=== PATIENT | female | born 1950 | race African-American/Black ===

== ENCOUNTER 2017-08-02 08:11 | Emergency (ER) | payer OTHER ==
[2017-08-02 08:32] VITALS: BP 166/90; PULSE 90; TEMP 98.6; BMI 25.1
[2017-08-02] MEDS ORDERED: ALBUTEROL SO4 2.5/IPRATROPIUM 0.5 INH SOL 3 ML VIAL.NEB. NEB ONE (08:43)
--- NOTE | 2017-08-02 08:47 | PDOC ---
History of Present Illness - General Chief Complaint: Cold Symptoms Stated Complaint: FLU LIKE SYMPTOMS Time Seen by Provider: 08/02/17 08:29 History Source: Patient Exam Limitations: No Limitations - History of Present Illness Initial Comments: 08/02/17 08:45 Patient is a 66-year-old female, history of hypertension high cholesterol presents with bronchospasm, cough, generalized body aches, tactile fever, sore throat. "I think I have the flu" Allergies: No known allergies Medications: [Metoprolol, Crestor patient is not sure if these are the correct names] Family History: Non-contributory Social History: Denies smoking, alcohol use, or IVDU Review of Systems GENERAL/CONSTITUTIONAL: [Fever and chills. No weakness. No weight change.] HEAD, EYES, EARS, NOSE AND THROAT: [No change in vision. No ear pain or discharge. Sore throat] CARDIOVASCULAR: [No chest pain or shortness of breath.] RESPIRATORY: [Nonproductive cough, no wheezing, or hemoptysis.] GASTROINTESTINAL: [No nausea, vomiting, diarrhea or constipation. No rectal bleeding.] GENITOURINARY: [No dysuria, frequency, or change in urination.] MUSCULOSKELETAL: [No joint or muscle swelling or pain. No neck or back pain.] SKIN AND BREASTS: [No rash or easy bruising.] NEUROLOGIC: [No headache, vertigo, loss of consciousness, or loss of sensation.] PSYCHIATRIC: [No depression or anxiety.] ENDOCRINE: [No increased thirst. No abnormal weight change.] HEMATOLOGIC/LYMPHATIC: [No anemia, easy bleeding, or history of blood clots.] ALLERGIC/IMMUNOLOGIC: [No hives or skin allergy. No latex allergy.] Physical Exam: GENERAL: [The patient is awake, alert, and fully oriented, in no acute distress. ] EYES: [Pupils equal, round and reactive to light, extraocular movements intact, sclera anicteric, conjunctiva clear.] ENT: [Ears normal, nares patent, oropharynx clear without exudates. Moist mucous membranes. No uvula deviation] NECK: [Normal range of motion, supple without lymphadenopathy, JVD, or masses.] LUNGS: [Breath sounds are decreased at the bases, rhonchi, no wheezing] HEART: [Regular rate and rhythm, normal S1 and S2 without murmur, rub or gallop. ] ABDOMEN: [Soft, nontender, normoactive bowel sounds. No guarding, no rebound. No masses. No bruising or abrasions] MUSCULOSKELETAL: [Normal range of motion, no edema. No clubbing or cyanosis. No cords, erythema, or tenderness. No CVA Tenderness with fist.] NEUROLOGICAL: [Cranial nerves II through XII grossly intact. Normal speech, normal gait.] SKIN: [Warm, Dry, normal turgor, no rashes or lesions noted.] Past History - Past Medical History Allergies/Adverse Reactions: Allergies Allergy/AdvReac Type Severity Reaction Status Date / Time No Known Drug Allergies Allergy Verified 08/02/17 08:20 Home Medications: Ambulatory Orders Aspirin [ASA -] 81 mg PO DAILY 05/03/13 Lisinopril [Prinivil -] 20 mg PO DAILY 05/03/13 Meclizine HCl [Antivert -] 25 mg PO TID PRN #14 tablet 06/18/15 Metoprolol Succinate [Toprol XL -] 50 mg PO DAILY 06/18/15 Albuterol Sulfate Inhaler - [Ventolin HFA Inhaler -] 1 - 2 inh PO Q4H #1 inhaler 08/02/17 Azithromycin [Zithromax 250mg Tablets -] 250 mg PO UTDICT #6 tab 08/02/17 Anemia: No Asthma: No Cancer: No Cardiac Disorders: No CVA: No COPD: No CHF: No Dementia: No Diabetes: No GI Disorders: No Disorders: No HTN: Yes Hypercholesterolemia: No Liver Disease: No Seizures: No Thyroid Disease: No - Surgical History Abdominal Surgery: Yes (TUMMY TUCK) Appendectomy: No Cardiac Surgery: No Cholecystectomy: No Lung Surgery: No Neurologic Surgery: No Orthopedic Surgery: No - Suicide/Smoking/Psychosocial Hx Smoking History: Never smoked Have you smoked in the past 12 months: Yes Hx Alcohol Use: No Drug/Substance Use Hx: No Substance Use Type: None Hx Substance Use Treatment: No *Physical Exam - Vital Signs Last Vital Signs Temp Pulse Resp BP Pulse Ox 98.6 F 90 18 166/90 98 08/02/17 08:18 08/02/17 08:18 08/02/17 08:18 08/02/17 08:18 08/02/17 08:18 Medical Decision Making - Medical Decision Making 08/02/17 08:47 A/P: Patient here for evaluation of flulike symptoms, lungs with rhonchi, Combivent given. I will test for the flu and treat for bronchitis, azithromycin. 08/02/17 09:39 Influenza is Negative will DC patient on azithromycin, albuterol, single dose of prednisone given in emergency room. Patient to follow-up with PMD. If Any respiratory difficulty, fever, other concerns return to ER. I discussed the physical exam findings, ancillary test results and final diagnoses with the patient. I answered all of the patient's questions. The patient was satisfied with the care received and felt comfortable with the discharge plan and treatment plan. The patient will call to arrange follow-up and will return to the Emergency Department with any new, persistent or worsening symptoms. *DC/Admit/Observation/Transfer Diagnosis at time of Disposition: URI (upper respiratory infection) Qualifiers: URI type: unspecified URI Qualified Code(s): J06.9 - Acute upper respiratory infection, unspecified - Discharge Dispostion Disposition: HOME Condition at time of disposition: Stable - Prescriptions Prescriptions: Albuterol Sulfate Inhaler - [Ventolin HFA Inhaler -] 1 - 2 inh PO Q4H #1 inhaler Azithromycin [Zithromax 250mg Tablets -] 250 mg PO UTDICT #6 tab - Referrals - Patient Instructions Printed Discharge Instructions: DI for Viral Upper Respiratory Infection -- Adult Additional Instructions: Increase fluids to prevent dehydration Tylenol for headache Motrin for fever greater than 101.0 Antibiotics as ordered until completed. Please followup with primary care in 3 days if symptoms persist Return to emergency department any increased cough, fever, inability to drink or other concerns - Post Discharge Activity
[2017-08-02] MEDS ORDERED: predniSONE 20 MG TABLET (UD) PO ONE (09:41)
[2017-08-02] MEDS ORDERED: predniSONE 20 MG TABLET (UD) ONE (09:45)
== END 2017-08-02 09:51 | disposition home or self-care (01) ==
LOC: JER 08:11
DX: J06.9 Acute upper respiratory infection, unspecified (principal); I10 Essential (primary) hypertension; E78.00 Pure hypercholesterolemia, unspecified
CPT/HCPCS: 87804; 99281-25

== ENCOUNTER 2018-05-17 07:59 | Emergency (ER) | payer OTHER ==
[2018-05-17 08:07] VITALS: BP 140/74; PULSE 62; TEMP 97.9; BMI 24.7
--- NOTE | 2018-05-17 08:40 | PDOC ---
History of Present Illness - General Chief Complaint: Injury Stated Complaint: FALL Time Seen by Provider: 05/17/18 08:27 History Source: Patient Exam Limitations: No Limitations - History of Present Illness Initial Comments: 05/17/18 08:49 pt states she slipped and fell on her left knee 4 days ago. pt has pain to left knee, pt is ambulating . Lower Ext. Injury Location - Specific Injury Location Knees: left pain Past History - Past Medical History Allergies/Adverse Reactions: Allergies Allergy/AdvReac Type Severity Reaction Status Date / Time No Known Drug Allergies Allergy Verified 05/17/18 08:07 Home Medications: Ambulatory Orders Aspirin [ASA -] 81 mg PO DAILY 05/03/13 Lisinopril [Prinivil -] 20 mg PO DAILY 05/03/13 Meclizine HCl [Antivert -] 25 mg PO TID PRN #14 tablet 06/18/15 Metoprolol Succinate [Toprol XL -] 50 mg PO DAILY 06/18/15 Albuterol Sulfate Inhaler - [Ventolin HFA Inhaler -] 1 - 2 inh PO Q4H #1 inhaler 08/02/17 Azithromycin [Zithromax 250mg Tablets -] 250 mg PO UTDICT #6 tab 08/02/17 Anemia: No Asthma: No Cancer: No Cardiac Disorders: No CVA: No COPD: No CHF: No Dementia: No Diabetes: No GI Disorders: No Disorders: No HTN: Yes Hypercholesterolemia: No Liver Disease: No Seizures: No Thyroid Disease: No - Surgical History Abdominal Surgery: Yes (TUMMY TUCK) Appendectomy: No Cardiac Surgery: No Cholecystectomy: No Lung Surgery: No Neurologic Surgery: No Orthopedic Surgery: No - Suicide/Smoking/Psychosocial Hx Smoking History: Never smoked Have you smoked in the past 12 months: Yes Number of Cigarettes Smoked Daily: 2 Information on smoking cessation initiated: Yes Hx Alcohol Use: No Drug/Substance Use Hx: No Substance Use Type: None Hx Substance Use Treatment: No Review of Systems - Review of Systems Able to Perform ROS?: Yes Is the patient limited Slovenian proficient: No Musculoskeletal: Yes: Symptoms Reported *Physical Exam - Vital Signs Last Vital Signs Temp Pulse Resp BP Pulse Ox 97.9 F 62 17 140/74 98 05/17/18 08:05 05/17/18 08:05 05/17/18 08:05 05/17/18 08:05 05/17/18 08:05 - Physical Exam General Appearance: Yes: Nourished, Appropriately Dressed HEENT: positive: EOMI, SONA Neck: positive: Supple Musculoskeletal: positive: Normal Inspection Extremity: positive: Normal Capillary Refill, Tender (medially left knee , no bony tenderness) Integumentary: positive: Normal Color, Dry, Warm Neurologic: positive: Fully Oriented, Alert, Normal Mood/Affect, Normal Response , Motor Strength 11/11 ED Treatment Course - RADIOLOGY Radiology Studies Ordered: Category Date Time Status KNEE 3 POS-LEFT [RAD] Stat Radiology 05/17/18 08:17 Taken Medical Decision Making - Medical Decision Making 05/17/18 08:51 cc: left knee injury 4 days ago no deformity or swelling nv intact pt has FROM of the knee xray is negative dc home with supportive care ortho follow up pt agrees with plan all questions asked and answered at discharge *DC/Admit/Observation/Transfer Diagnosis at time of Disposition: Contusion of knee, left Qualifiers: Encounter type: initial encounter Qualified Code(s): S80.02XA - Contusion of left knee, initial encounter - Discharge Dispostion Disposition: HOME Condition at time of disposition: Good - Referrals Referrals: Sctot Campo MD [Staff Physician] - - Patient Instructions Additional Instructions: apply warm compresses every 4hrs for 20 minutes take tylenol 650mg every 4-6hrs for pain follow up with or the orthopedist if pain continues or worsens - Post Discharge Activity
== END 2018-05-17 08:52 | disposition home or self-care (01) ==
LOC: JERFT 07:59
DX: S80.02XA Contusion of left knee, initial encounter (principal); W01.0XXA Fall on same level from slipping, tripping and stumbling without subsequent striking against object, initial encounter; Y93.89 Activity, other specified; Y92.89 Other specified places as the place of occurrence of the external cause; Y99.8 Other external cause status
CPT/HCPCS: 73562-TC-LT-FY; 99281-25

== ENCOUNTER → 2019-05-08 | Day surgery (SDC) | payer OTHER ==
--- NOTE | 2019-05-10 11:45 | PATH ---
Surgical Pathology Report Patient Name: MILA HERNANDEZ [facility]. Rec. #: [id number] /Age/Gender: 1950 (Age: 68) / F Account: [id number] Location: [facility] Taken: 05/08/2019 Received: 05/08/2019 Reported: 05/10/2019 Physicians: Everardo Horowitz Specimen(s) Received A: LEFT BREAST SPECIMEN - WITH CALCIFICATIONS B: LEFT BREAST SPECIMEN -WITHOUT CALCIFICATIONS Clinical History Nonpalpable lesion Mammographic findings: Microcalcification, suspicious Final Diagnosis A. 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 REMAINING BREAST TISSUE SHOWS FIBROCYSTIC CHANGES INCLUDING CYSTIC APOCRINE METAPLASIA, MILD USUAL DUCTAL HYPERPLASIA (UDH) AND STROMAL FIBROSIS. B. BREAST, LEFT, WITHOUT CALCIFICATIONS, STEREOTACTIC BIOPSY: BENIGN BREAST TISSUE SHOWING FRAGMENTS OF FIBROADENOMA AND RARE CALCIFICATIONS IN ASSOCIATION WITH UNREMARKABLE GLANDULAR PARENCHYMA. Electronically Signed Faye Reese M.D. Gross Description A. Received in formalin labeled "left breast with calcifications," are 7 boyd-yellow, cylindrical portions of fibroadipose tissue ranging from 0.6-3.2 cm in length and averaging 0.4 cm in diameter. The specimens are submitted in toto in 2 cassettes. B. Received in formalin labeled "left breast without calcifications," are 4 boyd-yellow, cylindrical portions of fibroadipose tissue ranging from 2.2-3.0 cm in length and averaging 0.4 cm in diameter. The specimens are submitted in toto in one cassette. Time to formalin fixation: 4 minutes Total formalin fixation time: Approximately 28 hours. 05/09/2019 [facility]05/09/2019
== END | disposition home or self-care (01) ==
LOC: FMAMMOTONE 12:03
PROVIDERS: ATTEND Nurse Practitioner Family
PROC: 0HBU3ZX Excision of Left Breast, Percutaneous Approach, Diagnostic (ICD-10-PCS; principal; 2019-05-08)
DX: D24.2 Benign neoplasm of left breast (principal); N64.89 Other specified disorders of breast; R92.1 Mammographic calcification found on diagnostic imaging of breast
CPT/HCPCS: 19081; 87899; 88305-TC; A4648

== ENCOUNTER 2021-03-16 09:37 | Emergency (ER) | payer OTHER ==
[2021-03-16 09:55] VITALS: BP 142/82; PULSE 62; TEMP 98; BMI 25.1
[2021-03-16] MEDS ORDERED: DEXAMETHASONE LIQUID 0.5 MG/5 ML PO ONE (10:30)
[2021-03-16] MEDS ORDERED: FAMOTIDINE 20 MG TABLET PO ONE (10:32)
[2021-03-16] MEDS ORDERED: diphenhydrAMINE HCL 25 MG CAPSULE (FP) PO ONE ×4 (10:32→10:43)
[2021-03-16] MEDS ORDERED: DEXAMETHASONE SOD PHOSPHATE 10 MG/1 ML VIAL ONE (10:40)
[2021-03-16] MEDS ORDERED: FAMOTIDINE 20 MG TABLET ONE (10:40)
== END 2021-03-16 11:29 | disposition home or self-care (01) ==
LOC: JER 09:37 → JERFT 09:37
DX: L29.9 Pruritus, unspecified (principal); T78.40XA Allergy, unspecified, initial encounter
CPT/HCPCS: 99283-25